=== PATIENT | female | born 1935 | race African-American/Black ===

== ENCOUNTER 2017-01-23 08:30 | Inpatient (IN) ==
[2017-01-23] MEDS ORDERED: SODIUM CHLORIDE 0.9% 500 ML IV STA (09:58)
[2017-01-23 10:04] LABS: Basophils % 0.2 % (0.0-0.8); Eosinophils # 0.1 10*3/uL (0.0-0.87); Eosinophils % 1.3 % (0.00-10.9); Hematocrit 41.2 VOL% (35.7-47.0); Hemoglobin 13.9 GM/DL (12.0-16.0); Immature Granulocytes % 0.4 %; Immature Granulocytes Absolute 0.04 #; Lymphocytes # 1.5 10*3/uL (1.4-4.0); Lymphocytes % 16.4 % (21.3-54.2); Mean Corpuscular HGB Conc 33.7 GM/DL (32-36); Mean Corpuscular Hemoglobin 28 PG (27-34); Mean Corpuscular Volume 82.9 FL (87-102); Mean Platelet Volume 10.1 FL (9.6-12.0); Monocytes # 0.7 10*3/uL (0.11-0.8); Neutrophils # 6.8 10*3/uL (1.4-7.4); Neutrophils % 73.7 % (38.7-73.9); Platelet Count 201 T/CUMM (130-400); Red Blood Count 4.97 MC/CUMM (3.8-5.5); Red Cell Distribution Width 17.6 % (9.3-17.3); White Blood Count 9.2 T/CUMM (4-12)
[2017-01-23 10:08] LABS: INR 1.1; PT Patient Result 12.2 SECS
[2017-01-23 10:30] LABS: Alanine Aminotransferase 9 U/L (13-56); Albumin 3.1 G/DL (3.4-5.0); Alkaline Phosphatase 59 U/L (45-117); Aspartate Amino Transferase 10 U/L (0-37); Blood Urea Nitrogen 6 MG/DL (7-18); Calcium 10.2 MG/DL (8.5-10.1); Glucose 90 MG/DL (74-106); Magnesium 2.1 MG/DL (1.8-2.4); Osmolality,Calculated 287.6 MOS/KG (273-304); Potassium 3.7 MMOL/L (3.5-5.1); Sodium 146 MMOL/L (136-145); Total Protein 7.2 G/DL (6.4-8.3); Troponin I Only < 0.015 NG/ML (0.00-0.045)
[2017-01-23 10:32] LABS: Ammonia 25 UMOL/L (11-32)
--- NOTE | 2017-01-23 10:43 | CT Report ---
History: Mental status changes Date: 01/23/2017 Study: CT head without contrast Comparison exam: No previous head CT available for comparison Transaxial CT sections were obtained through the head without IV contrast. This CT exam was performed using one or more the following dose reduction techniques: Automated exposure control, adjustment of the MA and/or KV according to patient size, or use of iterative reconstruction technique. There is moderate diffuse cerebral atrophy. The ventricles are midline in position without evidence of hydrocephalus. There is no mass or parenchymal hemorrhage. There is a small amount of ill-defined low density in the periventricular white matter without mass effect compatible with changes of small vessel disease. There is a small area of chronic ischemia in the left frontal lobe. There is no gross CT evidence of acute cortical stroke. There is no extra-axial hematoma. There is moderate distal carotid artery calcification. There is near complete opacification of the right sphenoid sinus. Impression: No acute intracranial process. Chronic ischemic changes. Prominent right sphenoid sinusitis which may be largely chronic PROCEDURE INTERPRETED AT [facility] DEPARTMENT OF RADIOLOGY Final Report Signed by: Dr. Kellie Mendoza
[2017-01-23 10:45] LABS: Apearance,Urine CLEAR (Clear); Bilirubin,Urine Negative (Negative); Blood, Urine Small mg/dL (Negative); Glucose,Urine (UA) Negative (Negative); Hyaline Casts,Urine 1 /LPF (0-3); Ketones,Urine Negative (Negative); Mucus,Urine Occasional /LPF (Occasional); Nitrite,Urine Negative (Negative); Protein,Urine 30 MG/DL; RBC,Urine 4 /HPF (0-4); Squamous Epithelial Cell,Urine Occasional /HPF (0-10); Urine Color Yellow (Yellow); Urine Specific Gravity 1.011 (1.001-1.035); Urine Urobilinogen < 2.0 EU/DL (0.2-1.0); WBC,Urine 1 /HPF (0-6)
--- NOTE | 2017-01-23 10:48 | Emergency Department Note ---
Anam Tan Rolonda, am scribing for, and in the presence of, Lenin Flowers MD 10:05. Kristie Tan Charles R, MD, personally performed the services described in this documentation, ascribed by Chantale Mendieta in my presence, and it is both accurate and complete . Arrival - Arrival Chief Complaint: Weakness Stated Complaint: real weak no appetite ED Nursing Triage Note: C/o generalized weakness and no appetite-onset "over a month ago". Patient has seen Dr. Wheeler for same c/o, but family states "she's been taking a turn for the worst". Reports productive cough. Mode of Arrival: Wheelchair Limitations: No Limitations Source: Family (daughters), Old Records Reviewed, RN Notes Reviewed - History of Present Illness HPI Narrative: Pt is an 81 y/o female who was brought to the ED via wheelchair for further evaluation on generalized weakness with an onset of months. Pt has a PMHx of HTN , Hypolakemia, Sepsis syndrome, and generalized weakness. Daughter stated that they visited PCP Dr. Wheeler this morning but was referred to the ED. Daughter confirms that pt is no longer able to perform ADLs, is shaky, drools, and leans over to her right side which is not nml for her. No other complaint/pain in ED. Onset (ago): month(s) Consistency: constant Severity: moderate Severity scale (1-10): 4 Date of Last Menstrual Period: hysterectomy Allergies/Adverse Reactions: Allergies Allergy/AdvReac Type Severity Reaction Status Date / Time No Known Allergies Allergy Verified 09/30/16 22:16 Home Medications: Home Medications Medication Instructions Recorded Confirmed Type Aspirin [Ecotrin] 81 mg PO DAILY 01/22/15 01/23/17 History Ferrous Sulfate Tab [Feosol 325 mg PO TID 01/22/15 01/23/17 History Original Tab] Isosorbide Mononitrate [Isosorbide 30 mg PO QAM 01/22/15 01/23/17 History Mononitrate ER] Magnesium Oxide [Magox 400] 400 mg PO BID 01/22/15 01/23/17 History Chlorpheniramine/Phenylephrine 1 tablet PO TID PRN 01/23/17 01/23/17 History [Ed-A-Hist 4 mg-10 mg Tablet] Magnesium Chloride [Slow Mag] 64 mg PO BID 01/23/17 01/23/17 History Megestrol Acetate 400 mg PO DAILY 01/23/17 01/23/17 History Naproxen Sodium [Naproxen Sodium 220 mg PO Q12H PRN 01/23/17 01/23/17 History Cap] Potassium Chloride [Potassium 20 meq PO DAILY 01/23/17 01/23/17 History Chloride] Theophylline ER Tab (24 Hr) 400 mg PO DAILY 01/23/17 01/23/17 History Review of System - Review of System 12 point system: reviewed and no additional remarkable complaints except as stated - Review of System Constitutional: Present: weakness. Absent: fever Eyes: Absent: pain Head/Ears/Nose/Throat: Absent: earache Respiratory: Absent: cough, respiratory distress Cardiovascular: Absent: chest pain Gastrointestinal: Absent: abdominal pain, nausea, diarrhea Musculoskeletal: Absent: arm pain, back pain Skin: Absent: rash Neurological: Absent: headache Psychiatric: Absent: anxiety Medical,Surgical,& Family Hx - Medical History Cardio: History of: CAD, Hypertension Endocrine: History of: Dyslipidemia, Thyroid Disorder Rheumatology: History of;: Rheumatoid Arthritis Respiratory: History of: COPD Gastrointestinal: History of: GERD Hematology: History of: Blood Transfusion Reaction (no reaction) - Surgical History Cardiac Surgeries: Sugical HX of: Cardiac Catheterization (stents), Cardiac Surgery (stents) Abdominal Surgeries: Surgical HX of: Appendectomy, Cholecystectomy Reproductive Surgeries: Surgical HX of;: Hysterectomy - Family History Family History: Reports;: Family Diabetes (in her mother.) - Social History Smoking Status: Former smoker Frequency of Alcohol Use: None Type of Drug Use: None Exam Vital Signs: Vital Signs Temperature 97.2 F L 01/23/17 09:10 Pulse Rate 95 H 01/23/17 09:10 Respiratory Rate 16 01/23/17 09:10 Blood Pressure 164/103 01/23/17 09:10 O2 Sat by Pulse Oximetry 88 L 01/23/17 08:34 - General General appearance: alert, in no apparent distress - Head Head exam: Present: atraumatic, normocephalic - Eye Eye exam: Present: PERRL, EOMI, other (sunken orbits) - ENT ENT exam: Present: mucous membranes dry. Absent: mucous membranes moist - Neck Neck exam: Present: full ROM. Absent: tenderness - Chest Chest inspection: Present: symmetric chest wall rise. Absent: tenderness - Respiratory Respiratory exam: Present: rhonchi - Cardiovascular Cardiovascular exam: Present: murmur (3/6) - Abdominal Exam Abdominal exam: Present: soft, normal bowel sounds. Absent: tenderness - Extremities Exam Extremities exam: Present: full ROM, other (right pronator drift). Absent: tenderness - Back Exam Back exam: Present: full ROM. Absent: tenderness - Neurological Exam Neurological exam: Present: alert, oriented X3, CN II-XII intact - Psychiatric Psychiatric exam: Present: normal affect, normal mood - Skin Skin exam: Present: warm, other (poor skin tugor; global atrophy) Course - Consultations Consultation #1: Hospitalist will admit patient Time: 11:33 Results - Labs CBC & BMP: 01/23/17 09:01 01/23/17 10:02 Lab Results: I have reviewed the patients labs Labs: Laboratory Tests 01/23/17 01/23/17 01/23/17 09:01 09:01 09:01 WBC 9.2 RBC 4.97 Hgb 13.9 Hct 41.2 MCV 82.9 L RDW 17.6 H Plt Count 201 Lymph % (Auto) 16.4 L INR 1.1 PT Patient/Control Mix 12.2 Sodium Potassium Chloride Carbon Dioxide Anion Gap BUN GFR Calculation Calcium ALT Troponin I Albumin Globulin Albumin/Globulin Ratio Urine pH 5.0 Ur Specific [place] 1.011 Urine Protein 30 Urine Glucose (UA) Negative Urine Ketones Negative Urine Blood Small Urine Nitrate Negative Urine Bilirubin Negative Urine Urobilinogen < 2.0 H Urine Leukocytes Negative Urine RBC 4 Urine WBC 1 Ur Squamous Epith Cells Occasional Hyaline Casts 1 Urine Mucus Occasional Ur Culture Indicated? Not indicated 01/23/17 10:02 WBC RBC Hgb Hct MCV RDW Plt Count Lymph % (Auto) INR PT Patient/Control Mix Sodium 146 H Potassium 3.7 Chloride 105 Carbon Dioxide 33 H Anion Gap 11.7 BUN 6 L GFR Calculation 49 Calcium 10.2 H ALT 9 L Troponin I < 0.015 Albumin 3.1 L Globulin 4.1 H Albumin/Globulin Ratio 0.7 L Urine pH Ur Specific [place] Urine Protein Urine Glucose (UA) Urine Ketones Urine Blood Urine Nitrate Urine Bilirubin Urine Urobilinogen Urine Leukocytes Urine RBC Urine WBC Ur Squamous Epith Cells Hyaline Casts Urine Mucus Ur Culture Indicated? - Diagnostic Findings Procedure: Chest x-ray: report reviewed by me (No definite acute cardiopulmonary process. Chronic lung changes. Grossly similar overall to the previous study.), CT: report reviewed by me (Head/Brain: No acute intracranial process. Chronic ischemic changes. Prominent right sphenoid sinusitis which may be largely chronic.) Disposition Clinical Impression: Generalized weakness, Right sided weakness, Anorexia, Debility Case discussed with: patient, patient's family Disposition: Still a Patient Condition: Stable Time of Disposition: 11:35 NIH Stroke Score - Stroke Score Initial Assessment Level of Consciousness: Drowsy Level of Consciousness Questions: Answers One Correctly Level of Consciousness Commands: Obeys Both Correctly Best Gaze: Normal Visual Nguyen: No Visual Loss Facial Palsy: Normal Motor - Right Arm: No Drift Motor - Left Arm: No Drift Motor - Right Leg: No Drift Motor - Left Leg: No Drift Limb Ataxia: Absent Sensory (Pin [place]): Normal Best Language: Mild to Moderate Aphasia Dysarthria: Mild to Moderate Extinction / Inattention (Neglect): No Neglect NIH Stroke Score: 4
--- NOTE | 2017-01-23 10:48 | XRay Report ---
History: Altered mental status Date: 01/23/2017 Study: Chest x-ray AP portable Comparison exam: September 30, 2016 The cardiac silhouette is upper normal in size. There is no mediastinal mass. There is mild aortic arch calcification. The pulmonary vasculature is upper normal. Skinfolds overlie the left lung base. There is no confluent infiltrate to suggest pneumonia. There are some scattered emphysematous changes. There is no gross pleural effusion. There is chronic sclerosis and erosive change of either humeral head which may be related to avascular necrosis. Impression: No definite acute cardiopulmonary process. Chronic lung changes. Grossly similar overall to the previous study PROCEDURE INTERPRETED AT [facility] DEPARTMENT OF RADIOLOGY Final Report Signed by: Dr. Kellie Mendoza
--- NOTE | 2017-01-23 11:11 | EKG Report ---
Stationary ECG Study [facility] ER Test Date: 01/23/2017 11:08:59 AM Pat Name: CLAUDINE PALM Department: Room: Gender: F Manufacturing Quality Technician: : 1935 Requested by: Lenin Strickland Order Number: [id number] Reading MD: FARSHAD ALARCON Intervals [place] Rate: 107 P: 104 W[place]: 147 QRS: -50 QRSD: 131 T: 88 QT: 372 QTc: 435 Interpretive Statements SINUS TACHYCARDIA WITH OCCASIONAL SUPRAVENTRICULAR PREMATURE COMPLEXES LEFT AXIS DEVIATION RIGHT BUNDLE BRANCH BLOCK Electronically Signed On 01-23-17 15:43:11 CDT by FARSHAD ALARCON [email or web address]
--- NOTE | 2017-01-23 12:02 | Hospitalist History & Physical ---
Addendum entered and electronically signed by Cortney Medley CNP 01/23/17 12 :23: Patient medications reviewed. CODE STATUS discussed; family request that the patient being a FULL CODE. Original Note: <Cortney Medley - Last Filed: 01/23/17 11:53> Assessment and Plan (1) Anorexia Status: Acute Assessment and plan: The patient is clearly underweight. The family reports that the patient's appetite has gradually tapered off and that she "does not want to eat" the patient was recently started on Megace in an effort to increase her appetite however, her appetite has failed to improve. The family verbalized concern regarding the patient's status however, wants to treat the patient aggressively. Current Visit: Yes (2) Generalized weakness Status: Acute Assessment and plan: It is unsure if the patient actually had a CVA, CT scan was initially negative. The patient does have some profound right-sided weakness and right side gaze. I am really uncertain if the patient is a candidate for any type of rehabilitation due to her current state. I feel that the patient is actually failure to thrive however the family seems to differ and want the patient to be aggressively treated. We will consult physical therapy and Occupational Therapy to evaluate. Current Visit: Yes (3) Right sided weakness Status: Acute Assessment and plan: The patient does have some profound right-sided weakness. Initial CT was negative for any acute intracranial processes. She clearly has some weakness. May order MRI to rule out any acute intracranial processes. We will consult neurology to evaluate. Current Visit: Yes History of Present Illness Chief complaint: Profound weakness History of present illness: This is a very poor and unfortunate 81-year-old female that presented to the ED at [facility] this morning for the evaluation of generalized weakness. Patient has a very extensive and complex medical history significant for: Chronic obstructive pulmonary disease, hypertension, dyslipidemia, coronary artery disease, rheumatoid arthritis, GERD. Patient has a surgical history significant for: Heart catheterization, cardiac stent placement, appendectomy, cholecystectomy, and hysterectomy. At the time of ED presentation, the patient was noted to be slow to respond with inappropriate speech noted. Her family is at bedside they will serve as historians. Per family report the onset of the above presenting symptoms started gradually over a span of months. They noted a gradual decline in their mother's functional ability. They report that she is no longer able to walk independently, she shakes uncontrollably, drools, and leans to the right side. Initially, they presented to her primary care physician's office Dr. José Manuel Wheeler this morning for evaluation. She was seen at Dr. Wheeler's office and advised to report to the emergency room immediately. The patient was seen and assessed. Labs were obtained from complete blood count reported white blood cell count at 9.2, hemoglobin 13.9, hematocrit 41.2, and platelet count of 201. Coagulation panel reported an INR 1.1 and PTT at 12.2. Complete metabolic profile reported a sodium at 146, potassium 3.7, chloride 105, carbon dioxide 33, BUN is 6, creatinine at 1.00, glucose 90, alkaline phosphatase 59, ammonia at 25, AST 18, ALT at 9. Prolactin was noted at 26.7. Cardiac enzymes were obtained which reported a troponin at less than 0.015. Urinalysis was essentially unremarkable. Chest x-ray was negative for any acute cardiopulmonary process, however chronic lung changes were noted. CT head reported no acute intracranial processes, chronic ischemic changes, and prominent right sphenoid sinusitis which may be largely, chronic. After brief discussion with both Dr. Flowers and Dr. Manzano, the patient will be admitted to the hospitalist group for continuation of care. Home Medications Medication Instructions Recorded Confirmed Type Aspirin [Ecotrin] 81 mg PO DAILY 01/22/15 01/23/17 History Ferrous Sulfate Tab [Feosol 325 mg PO TID 01/22/15 01/23/17 History Original Tab] Isosorbide Mononitrate [Isosorbide 30 mg PO QAM 01/22/15 01/23/17 History Mononitrate ER] Magnesium Oxide [Magox 400] 400 mg PO BID 01/22/15 01/23/17 History Chlorpheniramine/Phenylephrine 1 tablet PO TID PRN 01/23/17 01/23/17 History [Ed-A-Hist 4 mg-10 mg Tablet] Magnesium Chloride [Slow Mag] 64 mg PO BID 01/23/17 01/23/17 History Megestrol Acetate 400 mg PO DAILY 01/23/17 01/23/17 History Naproxen Sodium [Naproxen Sodium 220 mg PO Q12H PRN 01/23/17 01/23/17 History Cap] Potassium Chloride [Potassium 20 meq PO DAILY 01/23/17 01/23/17 History Chloride] Theophylline ER Tab (24 Hr) 400 mg PO DAILY 01/23/17 01/23/17 History Allergies Allergy/AdvReac Type Severity Reaction Status Date / Time No Known Allergies Allergy Verified 09/30/16 22:16 Medical,Surgical,& Family Hx - Medical History Cardio: History of: CAD, Hypertension Endocrine: History of: Dyslipidemia, Thyroid Disorder Rheumatology: History of;: Rheumatoid Arthritis Respiratory: History of: COPD Gastrointestinal: History of: GERD Hematology: History of: Blood Transfusion Reaction (no reaction) - Surgical History Cardiac Surgeries: Sugical HX of: Cardiac Catheterization (stents), Cardiac Surgery (stents) Abdominal Surgeries: Surgical HX of: Appendectomy, Cholecystectomy Reproductive Surgeries: Surgical HX of;: Hysterectomy - Family History Family History: Reports;: Family Diabetes (in her mother.) - Social History Smoking Status: Former smoker Frequency of Alcohol Use: None Type of Drug Use: None 12 point system: reviewed and no additional remarkable complaints except as stated Exam - Constitutional Vitals: Period Temp Pulse Resp BP Sys/Yap Pulse Ox Last 24 Hr 97.2 F-97.2 F 95-112 16-20 164-204/94-114 88-98 General appearance: mild distress, under weight - Head Head exam: Present: normal inspection, normocephalic, atraumatic - Eye Eye exam: Present: EOMI. Absent: conjunctival injection Pupils: Present: ALFRED, normal accommodation - ENT ENT exam: Present: normal exam, normal external ear exam, normal oropharynx - Neck Neck exam: Present: normal inspection. Absent: lymphadenopathy, meningismus, thyromegaly - Respiratory Respiratory exam: Present: rhonchi. Absent: accessory muscle use, chest wall tenderness, decreased breath sounds, rales, stridor, wheezes - Cardiovascular Cardiovascular exam: Present: regular rate and rhythm - GI/Abdominal GI/Abdominal exam: Present: normal bowel sounds, soft - Extremities Exam Extremities exam: Present: normal inspection, normal capillary refill, full ROM. Absent: edema - Back Exam Back exam: Present: normal inspection - Neurological Exam Neurological exam: Present: alert, altered - Psychiatric Psychiatric exam: Present: flat affect - Skin Skin exam: Present: normal color, warm, dry Results - Labs CBC & BMP: 01/23/17 09:01 01/23/17 10:02 Lab Results: I have reviewed the past 24 hour labs <Jose JuanCalvin - Last Filed: 01/23/17 17:14> History of Present Illness History of present illness: Patient seen and examined independently of HSANEL Medley, agree with history, assessment and plan as documented. 81 y/o AAF brought by family due to concern with patient leaning to her right side and confusion. Family notes that she has experienced a decrease in her appetite for a couple months, improved with medications, then worsened again. On my exam patient is oriented to person, place and situation. Her labs in the ED are actually pretty unimpressive, no leukocytosis, uti and cxr without acute process. Mucus membranes are slightly dry, will gently hydrate overnight. Check B12. Order MRI. PT/OT Exam - Constitutional Vitals: Period Temp Pulse Resp BP Sys/Yap Pulse Ox Last 24 Hr 97.2 F-98.1 F 95-120 16-23 125-204/84-114 88-100 Results - Labs CBC & BMP: 01/23/17 09:01 01/23/17 10:02
[2017-01-23] MEDS ORDERED: ALBUTEROL 2.5 MG/3 ML NEB RESP TX PRN (12:17)
[2017-01-23] MEDS ORDERED: cefTRIAXone 1,000 MG VIAL ONE (12:28)
[2017-01-23] MEDS ORDERED: cefTRIAXone 1,000 MG in SODIUM CHLORIDE 0.9% 100 ML IV SCH (12:30)
[2017-01-23] MEDS: ALBUTEROL/IPRATROPIUM 3 ML NEB RESP TX SCH ×2 (13:59→18:56)
[2017-01-23] MEDS ORDERED: ACETAMINOPHEN 325 MG TABLET PO PRN (16:56)
[2017-01-23] MEDS: SODIUM CHLORIDE 0.9% 1,000 ML IV SCH (17:06)
[2017-01-23] MEDS: ENOXAPARIN 40 MG/0.4 ML SYRINGE SUBCUT SCH (18:04)
[2017-01-23] MEDS: FERROUS SULFATE 325 MG TABLET PO SCH (20:45)
[2017-01-24] MEDS: ALBUTEROL/IPRATROPIUM 3 ML NEB RESP TX SCH ×5 (00:14→20:08)
[2017-01-24 03:46] LABS: Basophils % 0.3 % (0.0-0.8); Eosinophils # 0.1 10*3/uL (0.0-0.87); Eosinophils % 1.7 % (0.00-10.9); Hematocrit 36.8 VOL% (35.7-47.0); Hemoglobin 12.4 GM/DL (12.0-16.0); Immature Granulocytes % 0.3 %; Immature Granulocytes Absolute 0.02 #; Lymphocytes # 1.6 10*3/uL (1.4-4.0); Lymphocytes % 20.6 % (21.3-54.2); Mean Corpuscular HGB Conc 33.7 GM/DL (32-36); Mean Corpuscular Hemoglobin 28 PG (27-34); Mean Corpuscular Volume 82.5 FL (87-102); Mean Platelet Volume 10.5 FL (9.6-12.0); Monocytes # 0.8 10*3/uL (0.11-0.8); Monocytes % 10.1 % (1.7-12.7); Neutrophils # 5.1 10*3/uL (1.4-7.4); Platelet Count 173 T/CUMM (130-400); Red Blood Count 4.46 MC/CUMM (3.8-5.5); Red Cell Distribution Width 17.7 % (9.3-17.3); White Blood Count 7.5 T/CUMM (4-12)
[2017-01-24 04:19] LABS: Alanine Aminotransferase < 6 U/L (13-56); Albumin 2.6 G/DL (3.4-5.0); Alkaline Phosphatase 53 U/L (45-117); Aspartate Amino Transferase 9 U/L (0-37); Bilirubin,Total < 0.39 MG/DL (0.2-1.0); Blood Urea Nitrogen 5 MG/DL (7-18); Calcium 9.5 MG/DL (8.5-10.1); Glucose 91 MG/DL (74-106); Osmolality,Calculated 279.1 MOS/KG (273-304); Potassium 3.6 MMOL/L (3.5-5.1); Sodium 142 MMOL/L (136-145); Total Protein 5.9 G/DL (6.4-8.3)
[2017-01-24 04:26] LABS: Phosphorous 2.7 MG/DL (2.5-4.9)
[2017-01-24 04:27] LABS: Folate 6.7 NG/ML (5.4-24.0)
[2017-01-24] MEDS: SODIUM CHLORIDE 0.9% 1,000 ML IV SCH ×2 (05:53→18:50)
[2017-01-24] MEDS ORDERED: THEOPHYLLINE ER (24 HR) 400 MG TABLET PO SCH (09:00)
[2017-01-24] MEDS: ASPIRIN EC 81 MG TABLET PO SCH (10:20)
[2017-01-24] MEDS: ISOSORBIDE MONONITRATE 30 MG TABLET PO SCH (10:20)
[2017-01-24] MEDS: MEGESTROL 400 MG/10 ML UDCUP PO SCH (10:20)
[2017-01-24] MEDS: FERROUS SULFATE 325 MG TABLET PO SCH ×3 (10:20→20:59)
--- NOTE | 2017-01-24 11:18 | Hospitalist Progress Note ---
Assessment and Plan (1) Generalized weakness Status: Acute Assessment and plan: Impression: 1. Generalized weakness, etiology not certain 2. Tremor, possibly related to theophylline dosing 3. COPD 4. Coronary disease, status post stenting Plan: Discontinue theophylline. Await PT/OT evaluation and MRI. This note was completed using [employer] voice recognition software. There may be privacy manager errors as a result. Current Visit: Yes Hospitalist: Subjective Interval history: Follow-up generalized weakness. The patient's daughter reports that the patient has been experiencing a tremor for the past day or so. There is no prior history of tremor, and no family history of tremor. Usually, the patient is able to feed herself, but cannot do so today. She also apparently still has the right-sided weakness that was documented yesterday. The patient is a 3 of heart disease with stenting, but no prior stroke or myocardial infarction as far as the daughter knows. The daughter reports that the patient is able to swallow, but cannot feed herself because of the tremor. Exam - Constitutional Vitals: Period Temp Pulse Resp BP Sys/Yap Pulse Ox Last 24 Hr 97.1 F-98.1 F 80-120 16-23 125-175/70-94 92-100 Vital signs are noted above. Heart is regular with no murmur and distant tones. Abdomen is soft without any mass or tenderness. She is weak on the right side compared to the left. She has some bilateral cogwheeling and a gross coarse resting tremor worse in the upper extremities that does not appear to be parkinsonian. Reflexes are symmetric and possibly slightly hyperactive bilaterally Results - Labs CBC & BMP: 01/24/17 03:04 01/24/17 03:04 Lab Results: I have reviewed the past 24 hour labs (Theophylline level is 12)
--- NOTE | 2017-01-24 15:45 | Magnetic Resonance Report ---
Exam: MR head/brain wo con Date: 01/24/2017 4:00 AM Comparison: 09/12/2009, CT brain 01/23/2017 Indication: Right side weakness with right-sided gaze Technique:[Multiple acquisitions were obtained including sagittal T1, coronal T2, and axial ADC, diffusion, FLAIR, T2, GRE, and T1 scans without contrast only. Scans were obtained on a 1.5 [place] magnet.] Findings: Diffuse dilatation of the ventricles with small cavum and no midline displacement. The pituitary is stable in appearance with the cerebellar tonsils are normal in their location. No acute infarction is identified on the diffusion scans. Diffuse atrophy and extensive FLAIR/T2 hyperintensities. Previous MRI demonstrated chronic right cerebellar lacunar infarct. No evidence of hemorrhage, mass, or extracerebral collection. Significant mucosal thickening and fluid in the right sphenoid sinus which was not present on prior MRI. Decreased fluid in the right mastoid air cells. No acute findings in the orbits or [place] of [place]. Impression: No acute infarction. Progressive atrophy and microvascular disease with minimal compensatory dilatation of the ventricles. T2 hyperintensities can also be associated with demyelinating disease, vasculitis, viral illness, etc. Right sphenoid sinusitis. PROCEDURE INTERPRETED AT [facility] DEPARTMENT OF RADIOLOGY Final Report Signed by: Dr. Elisa Salinas
[2017-01-24] MEDS: DESITIN 4OZ/NYSTATIN 15 GRAM MIXTURE PASTE TOP SCH ×2 (16:48→21:00)
[2017-01-24] MEDS: ENOXAPARIN 40 MG/0.4 ML SYRINGE SUBCUT SCH (20:59)
[2017-01-25] MEDS: ALBUTEROL/IPRATROPIUM 3 ML NEB RESP TX SCH ×4 (00:42→18:30)
[2017-01-25] MEDS: ASPIRIN EC 81 MG TABLET PO SCH ×2 (06:03→09:47)
[2017-01-25] MEDS: ISOSORBIDE MONONITRATE 30 MG TABLET PO SCH ×2 (06:03→09:48)
[2017-01-25] MEDS: FERROUS SULFATE 325 MG TABLET PO SCH ×3 (09:49→21:51)
[2017-01-25] MEDS: MEGESTROL 400 MG/10 ML UDCUP PO SCH (09:49)
[2017-01-25] MEDS: DESITIN 4OZ/NYSTATIN 15 GRAM MIXTURE PASTE TOP SCH ×2 (09:49→21:53)
--- NOTE | 2017-01-25 10:47 | Hospitalist Progress Note ---
Assessment and Plan (1) Generalized weakness Status: Acute Assessment and plan: Impression: 1. Generalized weakness, etiology not certain 2. Tremor, possibly related to theophylline dosing. No history of familial tremor 3. COPD 4. Coronary disease, status post stenting 5. Supraventricular tachycardia Plan: Add Mysoline for the tremor. Check TSH. This note was completed using [employer] voice recognition software. There may be commodity industry analyst errors as a result. Current Visit: Yes Hospitalist: Subjective Interval history: Follow-up weakness and tremor. The patient is up in the chair today. Family reports that the tremor is not much different following the discontinuation of theophylline. They report that it has been going on for a while. MRI results were shared with the family. Exam - Constitutional Vitals: Period Temp Pulse Resp BP Sys/Yap Pulse Ox Last 24 Hr 97 F-98.5 F 86-156 18-20 115-180/62-100 90-99 Vital signs are noted above. Heart is irregular with distant tones and no murmur. Monitor strips show supraventricular tachycardia which appears to be multifocal atrial tachycardia or sinus with PACs Lungs are fairly clear with no wheezes. She has a kinetic tremor of both upper extremities. Results - Labs CBC & BMP: 01/24/17 03:04 01/24/17 03:04 Lab Results: I have reviewed the past 24 hour labs
[2017-01-25] MEDS: PRIMIDONE 50 MG TABLET PO SCH ×2 (12:39→21:52)
[2017-01-25] MEDS: ENOXAPARIN 40 MG/0.4 ML SYRINGE SUBCUT SCH (21:52)
[2017-01-26] MEDS: ALBUTEROL/IPRATROPIUM 3 ML NEB RESP TX SCH ×4 (01:00→20:16)
[2017-01-26 06:25] LABS: Calcium 9.8 MG/DL (8.5-10.1); Osmolality,Calculated 278.3 MOS/KG (273-304); Potassium 3.8 MMOL/L (3.5-5.1); Thyroid Stimulating Hormone 1.22 uIU/ml (0.358-3.74)
[2017-01-26] MEDS: ISOSORBIDE MONONITRATE 30 MG TABLET PO SCH (09:57)
[2017-01-26] MEDS: PRIMIDONE 50 MG TABLET PO SCH (09:57)
[2017-01-26] MEDS: ASPIRIN EC 81 MG TABLET PO SCH (09:57)
[2017-01-26] MEDS: DESITIN 4OZ/NYSTATIN 15 GRAM MIXTURE PASTE TOP SCH ×2 (09:57→22:47)
[2017-01-26] MEDS: FERROUS SULFATE 325 MG TABLET PO SCH ×3 (09:57→22:46)
[2017-01-26] MEDS: MEGESTROL 400 MG/10 ML UDCUP PO SCH (09:57)
--- NOTE | 2017-01-26 10:31 | Hospitalist Progress Note ---
Assessment and Plan (1) Generalized weakness Status: Acute Assessment and plan: Impression: 1. Generalized weakness, etiology not certain 2. Tremor, etiology not known 3. COPD, stable 4. Coronary disease, status post stenting, stable 5. Supraventricular tachycardia, resolved spontaneously Plan: Discontinue Mysoline. Social service consult for swing bed. She cannot have a TB skin test due to a prior positive reaction. Chest x-ray report is already on the chart.. This note was completed using ChatID voice recognition software. There may be storehouse clerk errors as a result. Current Visit: Yes Hospitalist: Subjective Interval history: Follow-up weakness and tremor. The patient's tremor seems to have improved with Mysoline. Unfortunately, family reports that she has become sedated on the medication, and they were having hard time keeping her awake to eat. We will therefore have to discontinue it. They are also wondering if she might be a candidate for swing bed. Apparently at home, she is up and about with a walker, and can make it from her bed to the bathroom. Exam - Constitutional Vitals: Period Temp Pulse Resp BP Sys/Yap Pulse Ox Last 24 Hr 96.7 F-98.2 F 64-118 18-20 116-141/63-77 92-100 Vital signs are noted above. Heart is regular with distant tones and no murmur. Chest is fairly clear with no wheezes. She seems sleepy today; tremor appears less prominent. Results - Labs CBC & BMP: 01/24/17 03:04 01/26/17 04:02 Lab Results: I have reviewed the past 24 hour labs
[2017-01-26] MEDS ORDERED: POLYETHYLENE GLYCOL POWDER 17 GM PACK PO PRN (22:15)
[2017-01-26] MEDS: ENOXAPARIN 40 MG/0.4 ML SYRINGE SUBCUT SCH (22:47)
[2017-01-27] MEDS: ALBUTEROL/IPRATROPIUM 3 ML NEB RESP TX SCH ×4 (01:29→20:19)
[2017-01-27] MEDS: FERROUS SULFATE 325 MG TABLET PO SCH ×3 (12:52→20:54)
[2017-01-27] MEDS: ASPIRIN EC 81 MG TABLET PO SCH (12:52)
[2017-01-27] MEDS: MEGESTROL 400 MG/10 ML UDCUP PO SCH (12:52)
[2017-01-27] MEDS: POLYETHYLENE GLYCOL POWDER 17 GM PACK PO SCH (12:52)
[2017-01-27] MEDS: DOCUSATE SODIUM 100 MG CAPSULE PO PRN (12:52)
[2017-01-27] MEDS: ISOSORBIDE MONONITRATE 30 MG TABLET PO SCH (12:53)
[2017-01-27] MEDS: DESITIN 4OZ/NYSTATIN 15 GRAM MIXTURE PASTE TOP SCH ×2 (12:53→20:29)
--- NOTE | 2017-01-27 13:40 | Hospitalist Progress Note ---
Assessment and Plan (1) Tremor Status: Acute Assessment and plan: - Mysoline cause lethargy so it was stopped - will continue to monitor Current Visit: Yes (2) SVT (supraventricular tachycardia) Status: Acute Assessment and plan: -Resolved spontaneuos - TSH normal - Echocardiogram ordered - will monitor Current Visit: Yes (3) COPD (chronic obstructive pulmonary disease) Status: Acute Assessment and plan: - stable Current Visit: Yes (4) Anorexia Status: Acute Assessment and plan: - Encourage PO intake - will monitor Current Visit: Yes (5) Generalized weakness Status: Acute Assessment and plan: -PT ordered - Swingbed referall sent per case management - will monitor Current Visit: Yes Hospitalist: Subjective Interval history: Ms. Enrique is 81 y/o female with a history of Chronic obstructive pulmonary disease, CAD, hypertension, dyslipidemia, coronary artery disease, rheumatoid arthritis, and GERD that was admitted for weakness, tremor, and SVT. Patient reports feeling better but is still very weak. Exam - Constitutional Vitals: Period Temp Pulse Resp BP Sys/Yap Pulse Ox Last 24 Hr 97.2 F-97.9 F 100-121 18-20 100-166/59-82 94-120 General appearance: no acute distress, other (thin) - Head Head exam: Present: normal inspection - Eye Eye exam: Present: EOMI - Respiratory Respiratory exam: Present: decreased breath sounds, other (coarse breath sounds) - Cardiovascular Cardiovascular exam: Present: tachycardia - GI/Abdominal GI/Abdominal exam: Present: normal bowel sounds, soft. Absent: tenderness - Extremities Exam Extremities exam: Absent: edema - Neurological Exam Neurological exam: Present: alert - Psychiatric Psychiatric exam: Present: normal affect, normal mood - Skin Skin exam: Present: normal color Results - Labs CBC & BMP: 01/24/17 03:04 01/26/17 04:02
[2017-01-27] MEDS ORDERED: TUBERCULIN SKIN TEST 0.1 ML SYRINGE INTRADERM ONE (14:11)
--- NOTE | 2017-01-27 14:16 | Case Mgmt Physician Query Form ---
TB Signs and Symptoms Screening ([place]) INSTRUCTIONS: To be completed annually on residents/staff with a significant Tuberculin Skin Test (TST) upon admission/hire or a prior significant TST. To be completed on all staff at hire. Please respond to each listed symptom with an (X) in either the "YES" or "NO" box. Do you currently have any of the following symptoms: YES NO ( ) (X ) A cough If yes, is it: ( ) Productive (X ) Non- productive ( ) ( X) Hemoptysis (spitting up blood) ( ) ( X) Chest pains ( ) ( X) Weight Loss ( ) ( X) Fever ( ) (X ) Night Sweats (X ) ( ) Weakness ( ) (X ) Loss of Appetite ( ) (X ) Difficulty Breathing If you answered YES" to any of the above questions, how long have symptoms been present? weakness is due to deconditioning. Comments: JAYSON
[2017-01-27] MEDS: ENOXAPARIN 40 MG/0.4 ML SYRINGE SUBCUT SCH (20:27)
--- NOTE | 2017-01-27 21:11 | ECHO Report ---
Jackelyn Enrique Exam Date: 01/27/2017 13:44 Referring Physician: Technologist: michelle Moreno ARDMS, RVT Age: 81 Ht (in): 63 Wt (lb): 96 Gender: F Exam Location: [facility] Echo Indications: Weakness, Tachycardia, unspecified, COPD, CAD w/previous stent BP: 166 / 79 HR: 132 Rhythm: Sinus Technical Quality: Good IMPRESSIONS Left ventricular ejection fraction is estimated at > 60 %. Mild left ventricular hypertrophy. Thickened mitral valve. Mild mitral valve regurgitation. Aortic valve sclerosis without stenosis. Trace aortic valve regurgitation. Tricuspid regurgitation velocities suggest a PAP of 60 mmHg. MEASUREMENTS (Male / Female) Normal Values 2D ECHO LV Diastolic Diameter PLAX 3.1 cm 4.2 - 5.9 / 3.9 - 5.3 cm LV Systolic Diameter PLAX 1.9 cm LV Fractional Shortening PLAX 38.7 % IVS Diastolic Thickness 1.0 cm 0.6 - 1.0 / 0.6 - 0.9 cm LVPW Diastolic Thickness 1.1 cm 0.6 - 1.0 / 0.6 - 0.9 cm RV Internal Dim ED PLAX 2.6 cm Aortic Root Diameter 3.0 cm LA Systolic Diameter LX 2.9 cm 3.0 - 4.0 / 2.7 - 3.8 cm DOPPLER TR Peak Velocity 352.0 cm/s TR Peak Gradient 49.6 mmHg FINDINGS Left Ventricle Normal left ventricular cavity size. Increased left ventricular wall thickness. Left ventricular ejection fraction is estimated at > 60 %.mild left ventricular hypertrophy. Right Ventricle The right ventricle is normal in size and function. Right Atrium The right atrium is normal in size. Left Atrium The left atrium is normal in size. Mitral Valve Thickened mitral valve. Mild mitral valve regurgitation. Aortic Valve Aortic valve sclerosis without stenosis. Trace aortic valve regurgitation. Tricuspid Valve Morphologically normal tricuspid valve. Mild tricuspid valve regurgitation. Tricuspid regurgitation velocities suggest a PAP of 60 mmHg. Pulmonic Valve Morphologically normal pulmonic valve. Trace pulmonary valve regurgitation. Pericardium Normal pericardium without effusion. Aorta Normal ascending aorta dimension. Desmond King MD (Electronically Signed) Final Date: 27 January 2017 21:10
[2017-01-28] MEDS: ALBUTEROL/IPRATROPIUM 3 ML NEB RESP TX SCH ×2 (00:24→06:50)
[2017-01-28 06:18] LABS: Basophils % 0.2 % (0.0-0.8); Eosinophils # 0.3 10*3/uL (0.0-0.87); Eosinophils % 2.2 % (0.00-10.9); Hematocrit 35.5 VOL% (35.7-47.0); Hemoglobin 12.3 GM/DL (12.0-16.0); Immature Granulocytes % 0.4 %; Immature Granulocytes Absolute 0.05 #; Lymphocytes # 1.8 10*3/uL (1.4-4.0); Lymphocytes % 16.1 % (21.3-54.2); Mean Corpuscular HGB Conc 34.6 GM/DL (32-36); Mean Corpuscular Hemoglobin 28 PG (27-34); Mean Corpuscular Volume 79.8 FL (87-102); Mean Platelet Volume 10.2 FL (9.6-12.0); Monocytes # 0.9 10*3/uL (0.11-0.8); Neutrophils # 8.1 10*3/uL (1.4-7.4); Neutrophils % 73.1 % (38.7-73.9); Platelet Count 242 T/CUMM (130-400); Red Blood Count 4.45 MC/CUMM (3.8-5.5); Red Cell Distribution Width 17.2 % (9.3-17.3); White Blood Count 11.1 T/CUMM (4-12)
[2017-01-28 06:50] LABS: Alanine Aminotransferase < 9 U/L (13-56); Albumin 2.3 G/DL (3.4-5.0); Alkaline Phosphatase 54 U/L (45-117); Aspartate Amino Transferase 12 U/L (0-37); Blood Urea Nitrogen 7 MG/DL (7-18); Calcium 9.6 MG/DL (8.5-10.1); Glucose 86 MG/DL (74-106); Osmolality,Calculated 269.8 MOS/KG (273-304); Potassium 3.9 MMOL/L (3.5-5.1); Sodium 137 MMOL/L (136-145); Total Protein 6.1 G/DL (6.4-8.3)
[2017-01-28] MEDS: FERROUS SULFATE 325 MG TABLET PO SCH (08:49)
[2017-01-28] MEDS: DOCUSATE SODIUM 100 MG CAPSULE PO PRN (08:49)
[2017-01-28] MEDS: ISOSORBIDE MONONITRATE 30 MG TABLET PO SCH (08:49)
[2017-01-28] MEDS: MEGESTROL 400 MG/10 ML UDCUP PO SCH (08:49)
[2017-01-28] MEDS: POLYETHYLENE GLYCOL POWDER 17 GM PACK PO SCH (08:49)
[2017-01-28] MEDS: ASPIRIN EC 81 MG TABLET PO SCH (08:49)
[2017-01-28] MEDS: DESITIN 4OZ/NYSTATIN 15 GRAM MIXTURE PASTE TOP SCH (08:57)
--- NOTE | 2017-01-28 10:20 | Discharge Summary ---
<Deblert West - Last Filed: 01/28/17 10:24> Hospital Course - Hospital Course Hospital Course: Ms. Enrique is a 81 year old female who presented to the ED on 01/23/2017 with complaints of "leaning to the right side". She was admitted the hospital medicine service with right sided weakness, anorexia and generalized weakness. On admission, her labs were fairly unimpressive with no evidences of leukocytosis, UTI or acute cardiopulmonary process as evidenced by CXR. Initial CT was negative for any acute process. MRI of the brain was ordered and revealed no acute infarction. Progressive atrophy and microvascular disease with minimal compensatory dilatation of the ventricles. During her hospital course, the patient did develop tremors thought to be related to theophylline dosing. Her theophylline levels were decreased. She also developed SVT when resolved spontaneously. Echocardiogram on 01/27/2017 revealed left ventricular ejection fraction estimated at greater than 60% with no significant valvular abnormalities. At this time the patient has reached maximum benefit from hospitalization and is stable for discharge to a [facility] facility for ongoing PT/OT. [facility] as well as her own PCP in 1-2 weeks. Agree with assessment and Plan. I personally seen the patient. - Time spent with patient Time with patient DS: Greater than 30 minutes Discharge Plan - Discharge Data Disposition: Disch/Xfer to Snf - Discharge Medications New Acetaminophen Tab [Tylenol Tab] 650 mg PO Q6H PRN tablet PRN Reason: Fever, Headache, Mild Pain Albuterol Neb [Proventil Neb] 2.5 mg RESP TX RT Q4H PRN PRN Reason: Shortness Of Breath/Wheezing Albuterol/Ipratropium Neb [Duoneb] 3 ml RESP TX RT Q6H Metoprolol Tartrate Tab [Lopressor Tab] 25 mg PO BID #60 tablet Polyethylene Glycol Powder [Miralax] 17 gm PO DAILY Docusate Sodium Cap [Colace Cap] 100 mg PO BID PRN capsule PRN Reason: Constipation Continue Aspirin [Ecotrin] 81 mg PO DAILY Magnesium Oxide [Magox 400] 400 mg PO BID Isosorbide Mononitrate [Isosorbide Mononitrate ER] 30 mg PO QAM Ferrous Sulfate Tab [Feosol Original Tab] 325 mg PO TID Naproxen Sodium [Naproxen Sodium Cap] 220 mg PO Q12H PRN PRN Reason: Pain Megestrol Acetate 400 mg PO DAILY Theophylline ER Tab (24 Hr) 400 mg PO DAILY Discontinued Chlorpheniramine/Phenylephrine [Ed-A-Hist 4 mg-10 mg Tablet] 1 tablet PO TID PRN PRN Reason: Congestion Potassium Chloride [Potassium Chloride] 20 meq PO DAILY Magnesium Chloride [Slow Mag] 64 mg PO BID - Follow Up or Referral - Forms/Instructions Exam - Constitutional Vitals: Period Temp Pulse Resp BP Sys/Yap Pulse Ox Last 24 Hr 97.2 F-98.7 F 73-121 18-20 101-162/54-84 90-99 Discharge Results Procedures and tests throughout hospitalization: Pending Orders 01/23/17 Blood Culture Stat Labs on day of discharge: Labs from last 24 hours 01/28/17 01/28/17 01/28/17 05:42 05:42 05:42 WBC 11.1 RBC 4.45 Hgb 12.3 Hct 35.5 L MCV 79.8 L MCH 28 MCHC 34.6 RDW 17.2 Plt Count 242 MPV 10.2 Neut % (Auto) 73.1 Lymph % (Auto) 16.1 L [place] % (Auto) 8.0 Eos % (Auto) 2.2 Baso % (Auto) 0.2 Neut # (Auto) 8.1 H Lymph # (Auto) 1.8 [place] # (Auto) 0.9 H Eos # (Auto) 0.3 Baso # (Auto) 0.0 Immature Gran % 0.4 Nucleated RBC % 0.0 Immature Gran # 0.05 Nucleated RBCs # 0.00 D-Dimer, Quantitative 2.1 Sodium 137 Potassium 3.9 Chloride 96 L Carbon Dioxide 34 H Anion Gap 10.9 BUN 7 Creatinine 0.70 GFR Calculation 76 BUN/Creatinine Ratio 10.00 Glucose 86 Calculated Osmolality 269.8 L Calcium 9.6 Total Bilirubin 0.40 AST 12 ALT < 9 L Alkaline Phosphatase 54 Total Protein 6.1 L Albumin 2.3 L Globulin 3.8 H Albumin/Globulin Ratio 0.6 L Preliminary micro results at discharge 01/23/17 Unknown Blood Culture - Preliminary Blood No growth at 3 days 01/23/17 Unknown Blood Culture - Preliminary Blood No growth at 3 days DS: Provider Date of admission: 01/23/17 12:25 Primary care physician: . No PCP Attending physician on admission: Calvin Manzano MD Consults: 01/23/17 14:21 Consult to Dietitian [CONS] Routine Reason for Dietitian: Dietary Consult 01/23/17 17:15 Consult to Occupational Therapy [CONS] Routine Reason for Occupational Therapy: Evaluate and Treat Consult to Physical Therapy [CONS] Routine Reason for Physical Therapy: Evaluate and Treat 01/26/17 10:28 Consult to Case Mgmt/Social Srvs [CONS] Routine Reason for Case Mgmt/Social Srvs: Swingbed/SNF/Group Home Discharging clinician: Delbert AKERS <Dawood Tapia - Last Filed: 02/13/17 18:03> Diagnosis - Discharge Diagnosis (1) Tremor Status: Acute (2) SVT (supraventricular tachycardia) Status: Acute (3) COPD (chronic obstructive pulmonary disease) Status: Acute (4) Anorexia Status: Acute (5) Generalized weakness Status: Acute Discharge Plan - Discharge Data Condition at Discharge: Stable Discharge Diet: advance to your usual diet Activity: resume usual activities as tolerated Hygiene: no restrictions Weight Bearing at Discharge: full weight bearing - Forms/Instructions Additional Discharge Instructions: f/u with [facility] doctor at [facility] as needed DS: Provider Discharging clinician: John Tapia MD Expected date of discharge: 01/28/17
[2017-01-28 12:20] VITALS: BP 134/66
== END 2017-01-28 13:45 | DRG 948 ==
LOC: N.ED 08:30 → SUATTDRO 12:25 → N.EDINP 12:25 → N.2E 13:51
PROVIDERS: ADMIT Internal Medicine; ATTEND Family Medicine

== ENCOUNTER 2018-08-11 07:54 | Inpatient (IN) ==
[2018-08-11] MEDS ORDERED: ALBUTEROL 2.5 MG/3 ML NEB RESP TX STA (08:19)
[2018-08-11] MEDS ORDERED: SODIUM CHLORIDE 0.9% 500 ML IV STA (08:19)
[2018-08-11 10:01] LABS: Basophils % 0.3 % (0.0-0.8); Hematocrit 41.4 VOL% (35.7-47.0); Hemoglobin 13.6 GM/DL (12.0-16.0); Immature Granulocytes % 0.4 %; Immature Granulocytes Absolute 0.05 #; Lymphocytes # 0.8 10*3/uL (1.4-4.0); Lymphocytes % 5.7 % (21.3-54.2); Mean Corpuscular HGB Conc 32.9 GM/DL (32-36); Mean Corpuscular Hemoglobin 28 PG (27-34); Mean Corpuscular Volume 84.7 FL (87-102); Mean Platelet Volume 9.2 FL (9.6-12.0); Monocytes # 0.7 10*3/uL (0.11-0.8); Monocytes % 5.1 % (1.7-12.7); Neutrophils # 11.9 10*3/uL (1.4-7.4); Neutrophils % 88.5 % (38.7-73.9); Platelet Count 217 T/CUMM (130-400); Red Blood Count 4.89 MC/CUMM (3.8-5.5); Red Cell Distribution Width 15.5 % (9.3-17.3); White Blood Count 13.4 T/CUMM (4-12)
[2018-08-11 10:38] LABS: Albumin 3.5 G/DL (3.4-5.0); Bilirubin,Total 0.7 MG/DL (0.2-1.0); Calcium 9.6 MG/DL (8.5-10.1); Osmolality,Calculated 274.7 MOS/KG (273-304); Total Protein 8.4 G/DL (6.4-8.3)
[2018-08-11] MEDS ORDERED: methylPREDNISolone SOD SUC 125 MG/2 ML VIAL IV STA (10:50)
[2018-08-11] MEDS ORDERED: LEVOFLOXACIN INJ 500 MG in PREMIX 1 EACH IV STA (10:50)
[2018-08-11] MEDS ORDERED: LACTULOSE 20 GM/30 ML UDCUP PO PRN (12:19)
[2018-08-11] MEDS ORDERED: DOCUSATE SODIUM 100 MG CAPSULE PO PRN (12:19)
[2018-08-11] MEDS ORDERED: guaiFENesin/DM ER 600-30 MG TABLET PO PRN (12:19)
[2018-08-11] MEDS: ALBUTEROL/IPRATROPIUM 3 ML NEB RESP TX SCH ×3 (15:45→23:21)
[2018-08-11] MEDS: ASPIRIN EC 81 MG TABLET PO SCH (17:02)
[2018-08-11] MEDS: cefTRIAXone 2,000 MG in SYRINGE 1 EACH IV SCH (17:02)
[2018-08-11] MEDS ORDERED: ENOXAPARIN 30 MG/0.3 ML SYRINGE SUBCUT SCH (21:00)
[2018-08-11] MEDS: MAGNESIUM OXIDE 400 MG TABLET PO SCH (21:55)
[2018-08-11] MEDS: ATORVASTATIN 80 MG TABLET PO SCH (21:55)
[2018-08-12] MEDS: ALBUTEROL/IPRATROPIUM 3 ML NEB RESP TX SCH ×6 (02:40→23:50)
[2018-08-12 04:51] LABS: Basophils % 0.1 % (0.0-0.8); Hematocrit 36.3 VOL% (35.7-47.0); Hemoglobin 12.2 GM/DL (12.0-16.0); Immature Granulocytes % 0.6 %; Immature Granulocytes Absolute 0.09 #; Lymphocytes # 0.9 10*3/uL (1.4-4.0); Lymphocytes % 5.7 % (21.3-54.2); Mean Corpuscular HGB Conc 33.6 GM/DL (32-36); Mean Corpuscular Hemoglobin 28 PG (27-34); Mean Corpuscular Volume 83.8 FL (87-102); Mean Platelet Volume 9.8 FL (9.6-12.0); Monocytes # 0.6 10*3/uL (0.11-0.8); Neutrophils # 13.9 10*3/uL (1.4-7.4); Neutrophils % 89.6 % (38.7-73.9); Platelet Count 182 T/CUMM (130-400); Red Blood Count 4.33 MC/CUMM (3.8-5.5); Red Cell Distribution Width 15.2 % (9.3-17.3); White Blood Count 15.6 T/CUMM (4-12)
[2018-08-12 05:05] LABS: Calcium 9.3 MG/DL (8.5-10.1); Potassium 3.6 MMOL/L (3.5-5.1)
[2018-08-12 05:29] LABS: Band Neutrophils 12 % (0-10); Lymphocytes 3 % (20-55); Segmented Neutrophils 81 % (50-85); Total Cells Counted 100
[2018-08-12 05:30] LABS: Hypochromasia 1+; Microcytosis Slight; Target Cells Slight
[2018-08-12 05:31] LABS: Platelet Estimate Adequate
[2018-08-12] MEDS: THEOPHYLLINE ER (24 HR) 400 MG TABLET PO SCH (09:46)
[2018-08-12] MEDS: PANTOPRAZOLE 40 MG TABLET PO SCH (09:47)
[2018-08-12] MEDS: MAGNESIUM OXIDE 400 MG TABLET PO SCH ×2 (09:47→20:27)
[2018-08-12] MEDS: ASPIRIN EC 81 MG TABLET PO SCH (09:47)
[2018-08-12] MEDS ORDERED: LEVOFLOXACIN INJ 500 MG in PREMIX 1 EACH IV SCH (10:00)
[2018-08-12] MEDS: ACETAMINOPHEN 325 MG TABLET PO PRN (14:10)
[2018-08-12] MEDS: MULTIVITAMIN (BEROCCA) TABLET PO SCH (14:11)
[2018-08-12] MEDS: CHOLECALCIFEROL 1,000 UNIT TABLET PO SCH (14:11)
[2018-08-12] MEDS: cefTRIAXone 2,000 MG in SYRINGE 1 EACH IV SCH (15:51)
[2018-08-12] MEDS: traMADol 50 MG TABLET PO PRN ×2 (16:00→20:27)
[2018-08-12] MEDS: ATORVASTATIN 80 MG TABLET PO SCH (20:27)
[2018-08-12] MEDS ORDERED: ENOXAPARIN 40 MG/0.4 ML SYRINGE SUBCUT SCH (21:00)
[2018-08-12] MEDS: ONDANSETRON 4 MG/2 ML VIAL IV PRN (23:41)
[2018-08-13] MEDS: ALBUTEROL/IPRATROPIUM 3 ML NEB RESP TX SCH ×4 (03:38→14:37)
[2018-08-13 05:11] LABS: Basophils % 0.2 % (0.0-0.8); Eosinophils % 0.1 % (0.00-10.9); Hematocrit 34.8 VOL% (35.7-47.0); Hemoglobin 11.4 GM/DL (12.0-16.0); Immature Granulocytes % 0.5 %; Immature Granulocytes Absolute 0.07 #; Lymphocytes # 2.2 10*3/uL (1.4-4.0); Lymphocytes % 15.1 % (21.3-54.2); Mean Corpuscular HGB Conc 32.8 GM/DL (32-36); Mean Corpuscular Hemoglobin 28 PG (27-34); Mean Corpuscular Volume 83.9 FL (87-102); Mean Platelet Volume 9.8 FL (9.6-12.0); Monocytes # 1.2 10*3/uL (0.11-0.8); Monocytes % 8.4 % (1.7-12.7); Neutrophils # 10.9 10*3/uL (1.4-7.4); Neutrophils % 75.7 % (38.7-73.9); Platelet Count 188 T/CUMM (130-400); Red Blood Count 4.15 MC/CUMM (3.8-5.5); Red Cell Distribution Width 15.8 % (9.3-17.3); White Blood Count 14.3 T/CUMM (4-12)
[2018-08-13 05:32] LABS: Calcium 8.7 MG/DL (8.5-10.1); Osmolality,Calculated 279.5 MOS/KG (273-304); Potassium 3.2 MMOL/L (3.5-5.1)
[2018-08-13] MEDS ORDERED: POTASSIUM CHLORIDE 20 MEQ TABLET PO ONE (08:43)
[2018-08-13] MEDS: THEOPHYLLINE ER (24 HR) 400 MG TABLET PO SCH (08:51)
[2018-08-13] MEDS: traMADol 50 MG TABLET PO PRN (08:51)
[2018-08-13] MEDS: PANTOPRAZOLE 40 MG TABLET PO SCH (08:51)
[2018-08-13] MEDS: MULTIVITAMIN (BEROCCA) TABLET PO SCH (08:51)
[2018-08-13] MEDS: MAGNESIUM OXIDE 400 MG TABLET PO SCH (08:52)
[2018-08-13] MEDS: ASPIRIN EC 81 MG TABLET PO SCH (08:52)
[2018-08-13] MEDS ORDERED: LEVOFLOXACIN 500 MG TABLET PO SCH (09:00)
[2018-08-13] MEDS: ONDANSETRON 4 MG/2 ML VIAL IV PRN (10:37)
[2018-08-13 12:05] VITALS: BP 120/52
[2018-08-13] MEDS: ACETAMINOPHEN 325 MG TABLET PO PRN (12:53)
[2018-08-13] MEDS: CHOLECALCIFEROL 1,000 UNIT TABLET PO SCH (12:56)
[2018-08-14] MEDS ORDERED: POTASSIUM CHLORIDE 20 MEQ TABLET PO SCH (09:00)
== END 2018-08-13 15:16 | disposition home or self-care (01) | DRG 194 ==
LOC: N.ED 07:54 → N.5E 13:50
PROVIDERS: ADMIT Hospitalist; ATTEND Hospitalist

== ENCOUNTER 2018-12-06 22:57 | Inpatient (IN) ==
[2018-12-06] MEDS ORDERED: PANTOPRAZOLE 40 MG VIAL IV STA (23:37)
[2018-12-06 23:45] LABS: Basophils # 0.1 10*3/uL (0.0-0.2); Basophils % 0.4 % (0.0-0.8); Eosinophils # 0.2 10*3/uL (0.0-0.87); Hematocrit 30.6 VOL% (35.7-47.0); Hemoglobin 9.6 GM/DL (12.0-16.0); Immature Granulocytes % 0.6 %; Immature Granulocytes Absolute 0.09 #; Lymphocytes # 3.4 10*3/uL (1.4-4.0); Lymphocytes % 23.3 % (21.3-54.2); Mean Corpuscular HGB Conc 31.4 GM/DL (32-36); Mean Corpuscular Volume 86.9 FL (87-102); Mean Platelet Volume 9.2 FL (9.6-12.0); Monocytes % 6.1 % (1.7-12.7); Neutrophils % 68.6 % (38.7-73.9); Platelet Count 313 T/CUMM (130-400); Red Blood Count 3.52 MC/CUMM (3.8-5.5); Red Cell Distribution Width 14.9 % (9.3-17.3); White Blood Count 14.7 T/CUMM (4-12)
[2018-12-06] MEDS ORDERED: LACTATED RINGERS 1,000 ML IV SCH (23:45)
[2018-12-06] MEDS: LACTATED RINGERS 1,000 ML IV SCH (23:56)
[2018-12-07 00:04] LABS: Albumin 3.1 G/DL (3.4-5.0); Bilirubin,Total 0.4 MG/DL (0.2-1.0); Calcium 10.6 MG/DL (8.5-10.1); Osmolality,Calculated 293.7 MOS/KG (273-304); Total Protein 7.8 G/DL (6.4-8.3)
[2018-12-07 00:09] LABS: INR 1.1; PT Patient Result 12.1 SECS
[2018-12-07 01:27] LABS: Band Neutrophils 1 % (0-10); Eosinophils 2 % (0-10); Lymphocytes 18 % (20-55); Segmented Neutrophils 77 % (50-85); Total Cells Counted 100
[2018-12-07 01:28] LABS: Anisocytosis 1+; Platelet Estimate Adequate
[2018-12-07] MEDS ORDERED: MORPHINE 4 MG/1 ML VIAL IV PRN (02:39)
[2018-12-07] MEDS ORDERED: ONDANSETRON 4 MG/2 ML VIAL IV PRN (02:39)
[2018-12-07] MEDS: SODIUM CHLORIDE 0.9% 1,000 ML IV SCH ×2 (04:18→15:24)
[2018-12-07] MEDS: LACTATED RINGERS 1,000 ML IV SCH ×3 (04:18→14:02)
[2018-12-07 05:32] LABS: Basophils % 0.2 % (0.0-0.8); Eosinophils % 0.1 % (0.00-10.9); Hematocrit 24.6 VOL% (35.7-47.0); Hemoglobin 8.1 GM/DL (12.0-16.0); Immature Granulocytes % 0.4 %; Immature Granulocytes Absolute 0.05 #; Lymphocytes # 1.6 10*3/uL (1.4-4.0); Lymphocytes % 11.7 % (21.3-54.2); Mean Corpuscular HGB Conc 32.9 GM/DL (32-36); Mean Corpuscular Volume 84.2 FL (87-102); Mean Platelet Volume 9.7 FL (9.6-12.0); Neutrophils % 79.6 % (38.7-73.9); Platelet Count 314 T/CUMM (130-400); Red Blood Count 2.92 MC/CUMM (3.8-5.5); Red Cell Distribution Width 14.7 % (9.3-17.3); White Blood Count 13.8 T/CUMM (4-12)
[2018-12-07] MEDS: PANTOPRAZOLE 40 MG VIAL IV SCH ×2 (08:15→20:57)
[2018-12-07] MEDS ORDERED: FUROSEMIDE 20 MG/2 ML VIAL IV PRN (09:34)
[2018-12-07] MEDS ORDERED: SODIUM CHLORIDE 0.9% 1,000 ML IV PRN (09:34)
[2018-12-07] MEDS: DEXTROSE 5% NACL 0.9% 1,000 ML IV SCH (16:29)
[2018-12-07 18:10] LABS: Hematocrit 39.3 VOL% (35.7-47.0)
[2018-12-07 18:11] LABS: Hemoglobin 12.6 GM/DL (12.0-16.0)
[2018-12-07 21:28] LABS: Hematocrit 34.4 VOL% (35.7-47.0); Hemoglobin 11.5 GM/DL (12.0-16.0)
[2018-12-08 06:09] LABS: Calcium 9.6 MG/DL (8.5-10.1)
[2018-12-08] MEDS: DEXTROSE 5% NACL 0.9% 1,000 ML IV SCH (09:57)
[2018-12-08] MEDS ORDERED: LIDOCAINE 100 MG/5 ML SYRINGE ONE (10:00)
[2018-12-08] MEDS ORDERED: ETOMIDATE 20 MG/10 ML VIAL IV ONE (10:00)
[2018-12-08] MEDS ORDERED: METOPROLOL TARTRATE 5 MG/5 ML VIAL IV ONE (10:00)
[2018-12-08 10:19] LABS: Hematocrit 37.4 VOL% (35.7-47.0); Hemoglobin 12.2 GM/DL (12.0-16.0)
[2018-12-08] MEDS ORDERED: traMADol 50 MG TABLET PO PRN (13:38)
[2018-12-08] MEDS: CYPROHEPTADINE 0.4 MG/ML 30 ML/BOTTLE PO SCH ×2 (16:23→20:53)
[2018-12-08] MEDS: PANTOPRAZOLE 40 MG TABLET PO SCH (18:33)
[2018-12-08 21:35] LABS: Hematocrit 32.8 VOL% (35.7-47.0); Hemoglobin 10.6 GM/DL (12.0-16.0)
[2018-12-09] MEDS: DEXTROSE 5% NACL 0.9% 1,000 ML IV SCH (02:23)
[2018-12-09] MEDS: PANTOPRAZOLE 40 MG TABLET PO SCH (06:38)
[2018-12-09 07:14] LABS: Basophils % 0.3 % (0.0-0.8); Eosinophils # 0.8 10*3/uL (0.0-0.87); Eosinophils % 7.8 % (0.00-10.9); Hematocrit 36.2 VOL% (35.7-47.0); Hemoglobin 11.6 GM/DL (12.0-16.0); Immature Granulocytes % 0.6 %; Immature Granulocytes Absolute 0.06 #; Lymphocytes % 18.7 % (21.3-54.2); Mean Corpuscular Volume 89.8 FL (87-102); Mean Platelet Volume 9.5 FL (9.6-12.0); Monocytes % 11.9 % (1.7-12.7); Neutrophils % 60.7 % (38.7-73.9); Platelet Count 227 T/CUMM (130-400); Red Blood Count 4.03 MC/CUMM (3.8-5.5); Red Cell Distribution Width 15.5 % (9.3-17.3); White Blood Count 10.5 T/CUMM (4-12)
[2018-12-09] MEDS: CYPROHEPTADINE 0.4 MG/ML 30 ML/BOTTLE PO SCH (08:01)
[2018-12-09 11:07] VITALS: BP 116/56
== END 2018-12-09 14:35 | disposition home or self-care (01) | DRG 378 ==
LOC: N.ED 22:57 → N.EDINP 22:57 → N.5E 12-07 03:06
PROVIDERS: ADMIT Hospitalist; ATTEND Hospitalist